=== PATIENT | male | born 1975 | race Caucasian/White ===

== ENCOUNTER 2023-03-04 04:23 | Inpatient (IN) | payer MEDICAID ==
[~2023-03-04] VITALS: Ht 170.2 cm; Wt 74.8 kg
[~2023-03-04 04:23] MED LIST: ACYC-279 PO; ASPI-1822 PO; PRED20TA6 PO
[2023-03-04 04:25] VITALS: BP 136/79; PULSE 76; RESP 16; TEMP 97.7; O2SAT 98
[2023-03-04 06:25] LABS: APPEARANCE,URINE CLEAR (CLEAR); BILIRUBIN,URINE NEGATIVE (NEGATIVE); BLOOD, URINE NEGATIVE (NEGATIVE); COLOR,URINE YELLOW (YELLOW); LEUKOCYTE ESTERASE ,URINE NEGATIVE (NEGATIVE); NITRITE, URINE NEGATIVE (NEGATIVE); PROTEIN,URINE NEGATIVE (NEGATIVE); UGLUCOSE NEGATIVE (NEGATIVE); UROBILINOGEN,URINE 0.2 EU/dL (0.2 - 1)
[2023-03-04] MEDS ORDERED: KETOROLAC 60 MG/2 ML VIAL IM ONE (07:10)
[2023-03-04 07:34] LABS: BASOPHILS # (AUTO) 0.1 K/uL (0.00-0.22); BASOPHILS % (AUTO) 0.6 % (0.0-2.0); EOSINOPHILS % (AUTO) 0.1 % (0.0-4.0); HEMATOCRIT 46.6 % (36-52); HEMOGLOBIN 16.5 g/dL (12.0-18.0); LYMPHOCYTES # (AUTO) 1.2 K/uL (2.0-11.5); MEAN CORPUSCULAR HEMOGLOBIN 32 pg (27-31); MEAN CORPUSCULAR HGB CONC 35 g/dL (33-37); MEAN CORPUSCULAR VOLUME 89.2 fL (80-94); MONOCYTES # (AUTO) 0.8 K/uL (0.8-1.0); MONOCYTES % (AUTO) 5.3 % (1.7-9.3); PLATELET COUNT (AUTO) 172 K/uL (140-450); RED BLOOD CELL COUNT(AUTO) 5.22 MIL/uL (4.20-6.10); RED CELL DISTRIBUTION WIDTH 14.3 % (11.6-13.7); WHITE BLOOD COUNT (AUTO) 15.1 K/uL (4.8-10.8)
[2023-03-04 07:58] LABS: LYMPHOCYTES % (AUTO) 8.1 % (20.5-51.1); NEUTROPHILS % (AUTO) 85.9 % (42.2-75.2)
[2023-03-04] MEDS ORDERED: MAG SULF 2000 MG/WATER PREMIX 50 ML IV PRN (09:35)
[2023-03-04] MEDS ORDERED: NACL 0.9% 1,000 ML IV SCH (09:35)
[2023-03-04] MEDS ORDERED: ZOLPIDEM 10 MG TAB PO PRN (09:35)
[2023-03-04] MEDS ORDERED: DOCUSATE SODIUM 100 MG GELCAP PO PRN (09:35)
[2023-03-04] MEDS ORDERED: ACETAMINOPHEN 325 MG TAB PO PRN (09:35)
[2023-03-04] MEDS ORDERED: MORPHINE SULFATE 2 MG/ML SYR IVP PRN (09:35)
[2023-03-04] MEDS ORDERED: ONDANSETRON 4 MG/2 ML VIAL IVP PRN (09:35)
[2023-03-04] MEDS ORDERED: LORazepam 2 MG/ML VIAL IVP PRN (09:35)
[2023-03-04] MEDS ORDERED: POTASSIUM CHLORIDE 10 MEQ TABER PO PRN (09:35)
[2023-03-04] MEDS ORDERED: ACET-10509 PO (09:46)
[2023-03-04 09:53] VITALS: O2SAT 97
[2023-03-04 11:05] VITALS: TEMP 97.9
[2023-03-04 11:44] VITALS: O2SAT 98
[2023-03-04 12:45] LABS: PROTHROMBIN TIME 10.8 secs (10.8-13.4)
[2023-03-04 12:46] LABS: INR 0.9 (0.8-1.2)
[2023-03-04] MEDS ORDERED: PIPERACILLIN/TAZOBACTAM 3.375 GM in DEXTROSE 5% 50 ML IV SCH (13:00)
[2023-03-04] MEDS ORDERED: PIPERACILLIN/TAZOBACTAM 3.375 GM VIAL IV ONE (13:20)
[2023-03-04 13:48] VITALS: O2SAT 98
[2023-03-04 14:53] VITALS: BP 132/76; PULSE 92; RESP 17; O2SAT 98
== END 2023-03-04 15:23 | disposition short-term general hospital (02) | DRG 254 ==
LOC: MED 04:23 → MTU 09:34
PROVIDERS: ADMIT Family Medicine; ATTEND Family Medicine
DX: K35.80 Unspecified acute appendicitis (principal); R65.10 Systemic inflammatory response syndrome (SIRS) of non-infectious origin without acute organ dysfunction; Z81.8 Family history of other mental and behavioral disorders; Z83.3 Family history of diabetes mellitus; Z82.49 Family history of ischemic heart disease and other diseases of the circulatory system
CPT/HCPCS: 36415; 81001; 81003; 85025; 85610; 96365; 96372; 99285; J1885; J2543; J7060